=== PATIENT | female | born 1975 | race Asian ===

== ENCOUNTER 2017-05-01 09:36 | Emergency (ER) | payer MEDICAID ==
[~2017-05-01] VITALS: Ht 162.6 cm; Wt 63.5 kg
[2017-05-01] MEDS ORDERED: ONDANSETRON HCL 4 MG/2 ML VIAL IV ONE (11:15)
[2017-05-01] MEDS ORDERED: MORPHINE SULFATE 4 MG/ML SYRG IV ONE (11:15)
[2017-05-01 14:03] VITALS: BP 100/63
== END 2017-05-01 14:23 | disposition home or self-care (01) ==
LOC: ER 09:36
DX: R10.30 Lower abdominal pain, unspecified (principal); R07.9 Chest pain, unspecified; R51 Headache; V49.49XA Driver injured in collision with other motor vehicles in traffic accident, initial encounter; Y93.89 Activity, other specified; Y92.410 Unspecified street and highway as the place of occurrence of the external cause; Y99.8 Other external cause status
CPT/HCPCS: 70450; 71250; 72125; 73552; 74176; 96374; 96375; 99284; J2270; J2405

== ENCOUNTER 2017-05-10 08:55 | Emergency (ER) | payer MEDICAID ==
[~2017-05-10] VITALS: Ht 162.6 cm; Wt 54.4 kg
[2017-05-10 09:11] VITALS: BP 122/86
[2017-05-10] MEDS: KETOROLAC TROMETH 60MG/2ML VIAL IM ONE (09:33)
== END 2017-05-10 10:39 | disposition home or self-care (01) ==
LOC: ER 08:55
DX: S33.5XXA Sprain of ligaments of lumbar spine, initial encounter (principal); V89.2XXA Person injured in unspecified motor-vehicle accident, traffic, initial encounter; Y93.89 Activity, other specified; Y92.410 Unspecified street and highway as the place of occurrence of the external cause; Y99.8 Other external cause status
CPT/HCPCS: 72100; 96372; 99284; J1885